=== PATIENT | female | born 1940 | race Caucasian/White ===

== ENCOUNTER → 2016-11-21 | Outpatient (CLI) | payer MEDICARE, OTHER ==
[~2016-11-21] MED LIST: B-121000 MCG PO; CARDIZEM CD 24240 MG PO; CIPRO 250MG TA250 MG PO; CLEOCIN HCL300 MG PO; COLACE 100100 MG/CAP PO; CORDARONE200 MG/TAB PO; FLAX OIL1000 MG PO; HEPARIN LOCK FLU5 M1 IV; LASIX 20MG TABL20 MG PO; LEVAQUIN 750MG750 M1 PO; MIRALAX PA17 GM/Dose PO; MULTI VITAMINS1 TAB PO; NATURAL MAGNES200 MG PO; NORCO 325 MG-51 TAB PO; NYAMYC100000 U/G TP; NYSTATIN POWDER30 GM TOP; ROCEPHIN 2GM VIAL21 IV; SENSIPAR30 MG PO; TYLENOL 325MG325 MG PO; VITAMINC1000TA PO; XOPENEX 0.0.63 MG/3 IH; ZEBETA 5MG5 MG PO; ZYLOPRIM 300MG300 MG PO
== END ==
LOC: MC.RAD 10:42
DX: Z12.31 Encounter for screening mammogram for malignant neoplasm of breast (principal)

== ENCOUNTER 2016-12-08 19:20 | Inpatient (IN) | payer MEDICARE, OTHER ==
[~2016-12-08] VITALS: Ht 162.6 cm; Wt 79.5 kg
[~2016-12-08 19:20] MED LIST changes: -B-121000 MCG PO; -CARDIZEM CD 24240 MG PO; -CLEOCIN HCL300 MG PO; -COLACE 100100 MG/CAP PO; -CORDARONE200 MG/TAB PO; -FLAX OIL1000 MG PO; -HEPARIN LOCK FLU5 M1 IV; -LASIX 20MG TABL20 MG PO; -LEVAQUIN 750MG750 M1 PO; -MIRALAX PA17 GM/Dose PO; -MULTI VITAMINS1 TAB PO; -NATURAL MAGNES200 MG PO; -NORCO 325 MG-51 TAB PO; -NYAMYC100000 U/G TP; -NYSTATIN POWDER30 GM TOP; -ROCEPHIN 2GM VIAL21 IV; -SENSIPAR30 MG PO; -TYLENOL 325MG325 MG PO; -VITAMINC1000TA PO; -XOPENEX 0.0.63 MG/3 IH; -ZEBETA 5MG5 MG PO; -ZYLOPRIM 300MG300 MG PO
[2016-12-08 20:00] LABS: HEMATOCRIT 40.2 % (37.0-47.0); HEMOGLOBIN 13.6 g/dl (12.5-16.0); MEAN CELL VOLUME 88 fl (80.0-100.0); MEAN CORPUSCULAR HEMOGLOBIN 30 pg (27.0-31.0); MEAN CORPUSCULAR HGB CONC 34 g/dl (33.0-37.0); MEAN PLATELET VOLUME 13.7 fl (7.4-10.4); PLATELET COUNT 158 K/mm3 (130-400); RED BLOOD COUNT 4.59 M/mm3 (4.10-5.30); REDCELL DISTRIBUTION WIDTH-CV 13.8 % (11.5-14.5)
[2016-12-08 20:07] LABS: ADD PATHOLOGY DIFF REVIEW NO; WHITE BLOOD COUNT 29.5 K/mm3 (4.8-10.8)
[2016-12-08 20:12] LABS: ANION GAP 10 mmol/L (7-16); BLOOD UREA NITROGEN 30 mg/dL (7-17); CALCIUM 11.4 mg/dL (8.4-10.2); CARBON DIOXIDE 23 mmol/L (22-30); CHLORIDE 96 mmol/L (98-107); CREATININE, serum 0.67 mg/dL (0.52-1.25); GLUCOSE 169 mg/dL (74-106); POTASSIUM 4.3 mmol/L (3.4-5.0); SODIUM 128 mmol/L (137-145)
[2016-12-08 20:24] LABS: B-TYPE NATRIURETIC PEPTIDE 1740 pg/mL (0-450)
[2016-12-08 20:25] LABS: BAND 34 % (0-10); METAMYELOCYTE 3 % (0-0); MYELOCYTE 1 % (0-0); NEUTROPHILS 37 % (42.0-75.2); PLATELET ESTIMATE NORMAL (NORMAL); TOTAL CELLS COUNTED 100
[2016-12-08 20:26] LABS: TROPONIN-I < 0.012 ng/mL (0.000-0.034)
[2016-12-08] MEDS ORDERED: MULTI VITAMINS1 TAB PO (21:21)
[2016-12-08] MEDS ORDERED: VITAMINC1000TA PO (21:21)
[2016-12-08 22:16] VITALS: BP 117/63; PULSE 127; TEMP 97.8
[2016-12-09] VITALS (572 sets, daily range): BP systolic 99–136; BP diastolic 51–85; PULSE 80–144; TEMP 96.8–98.7; O2SAT 84–96
[2016-12-09 03:51] LABS: HEMATOCRIT 37.6 % (37.0-47.0); HEMOGLOBIN 12.3 g/dl (12.5-16.0); MEAN CELL VOLUME 90 fl (80.0-100.0); MEAN CORPUSCULAR HEMOGLOBIN 30 pg (27.0-31.0); MEAN CORPUSCULAR HGB CONC 33 g/dl (33.0-37.0); MEAN PLATELET VOLUME 13.4 fl (7.4-10.4); PLATELET COUNT 152 K/mm3 (130-400); RED BLOOD COUNT 4.16 M/mm3 (4.10-5.30); REDCELL DISTRIBUTION WIDTH-CV 13.9 % (11.5-14.5)
[2016-12-09 04:00] LABS: ADD PATHOLOGY DIFF REVIEW NO; WHITE BLOOD COUNT 31.7 K/mm3 (4.8-10.8)
[2016-12-09 04:07] LABS: ANION GAP 9 mmol/L (7-16); BLOOD UREA NITROGEN 27 mg/dL (7-17); CALCIUM 10.4 mg/dL (8.4-10.2); CARBON DIOXIDE 21 mmol/L (22-30); CHLORIDE 100 mmol/L (98-107); CREATININE, serum 0.63 mg/dL (0.52-1.25); GLUCOSE 193 mg/dL (74-106); POTASSIUM 3.7 mmol/L (3.4-5.0); SODIUM 130 mmol/L (137-145)
[2016-12-09 04:58] LABS: TROPONIN-I < 0.012 ng/mL (0.000-0.034)
[2016-12-09 06:13] LABS: BAND 59 % (0-10); BASOPHIL 1 % (0-2); METAMYELOCYTE 3 % (0-0); NEUTROPHILS 14 % (42.0-75.2); TOTAL CELLS COUNTED 100
[2016-12-09 06:14] LABS: PLATELET ESTIMATE NORMAL (NORMAL)
[2016-12-09 13:25] LABS: INFLUENZA B NEGATIVE
[2016-12-10] VITALS (1068 sets, daily range): BP systolic 132–153; BP diastolic 69–99; PULSE 87–106; TEMP 97.7–98.3; O2SAT 79–100
[2016-12-10 06:07] LABS: BASO # 0.1 (0.0-0.2); BASO % 0.2 % (0.0-2.0); EOS # 0.1 (0.0-0.7); EOS % 0.3 % (0-4.0); GRAN # 32.3 (1.4-6.5); GRAN % 75.6 % (42.2-75.2); HEMATOCRIT 38.5 % (37.0-47.0); HEMOGLOBIN 12.5 g/dl (12.5-16.0); LYMPH # 7.8 (1.2-3.4); LYMPH % 18.3 % (20.0-51.0); MEAN CELL VOLUME 90 fl (80.0-100.0); MEAN CORPUSCULAR HEMOGLOBIN 29 pg (27.0-31.0); MEAN CORPUSCULAR HGB CONC 33 g/dl (33.0-37.0); MEAN PLATELET VOLUME 13.6 fl (7.4-10.4); MONO # 1.1 (0.1-0.6); MONO % 2.6 % (1.7-9.3); PLATELET COUNT 222 K/mm3 (130-400); RED BLOOD COUNT 4.28 M/mm3 (4.10-5.30); REDCELL DISTRIBUTION WIDTH-CV 14.5 % (11.5-14.5)
[2016-12-10 06:15] LABS: CALCIUM 10.5 mg/dL (8.4-10.2); CREATININE, serum 0.6 mg/dL (0.52-1.25); POTASSIUM 3.9 mmol/L (3.4-5.0)
[2016-12-10 06:20] LABS: WHITE BLOOD COUNT 42.7 K/mm3 (4.8-10.8)
[2016-12-10 06:59] LABS: ADD PATHOLOGY DIFF REVIEW NO
[2016-12-10 07:29] LABS: BAND 32 % (0-10); BASOPHIL 1 % (0-2); EOSINOPHIL 0 % (0-4); NEUTROPHILS 41 % (42.0-75.2); TOTAL CELLS COUNTED 101
[2016-12-10 08:15] LABS: PH 6 (5-8); SQUAMOUS EPITHELIAL 0-2 /hpf; URINE APPEARANCE Clear; URINE BACTERIA None Seen /hpf; URINE BILIRUBIN Negative (NEGATIVE); URINE BLOOD Negative (NEGATIVE); URINE COLOR Yellow; URINE GLUCOSE Negative (NEGATIVE); URINE KETONE Negative (NEGATIVE); URINE RBC None Seen /hpf; URINE UROBILINOGEN Negative (NEGATIVE); URINE WBC 0-2 /hpf
[2016-12-11] VITALS (7 sets, daily range): BP systolic 108–147; BP diastolic 53–99; PULSE 94–107; TEMP 98–100
[2016-12-11 10:11] LABS: BASO # 0.2 (0.0-0.2); BASO % 0.4 % (0.0-2.0); EOS # 0.1 (0.0-0.7); EOS % 0.2 % (0-4.0); GRAN # 30.9 (1.4-6.5); GRAN % 70.2 % (42.2-75.2); HEMATOCRIT 37.3 % (37.0-47.0); HEMOGLOBIN 12.2 g/dl (12.5-16.0); LYMPH # 9.8 (1.2-3.4); LYMPH % 22.3 % (20.0-51.0); MEAN CELL VOLUME 90 fl (80.0-100.0); MEAN CORPUSCULAR HEMOGLOBIN 29 pg (27.0-31.0); MEAN CORPUSCULAR HGB CONC 33 g/dl (33.0-37.0); MEAN PLATELET VOLUME 12.5 fl (7.4-10.4); MONO # 1.5 (0.1-0.6); MONO % 3.5 % (1.7-9.3); PLATELET COUNT 288 K/mm3 (130-400); RED BLOOD COUNT 4.15 M/mm3 (4.10-5.30); REDCELL DISTRIBUTION WIDTH-CV 14.6 % (11.5-14.5)
[2016-12-11 10:12] LABS: CALCIUM 10.2 mg/dL (8.4-10.2); CREATININE, serum 0.57 mg/dL (0.52-1.25); POTASSIUM 4.3 mmol/L (3.4-5.0)
[2016-12-11 10:15] LABS: WHITE BLOOD COUNT 43.9 K/mm3 (4.8-10.8)
[2016-12-11 10:56] LABS: ADD PATHOLOGY DIFF REVIEW NO
[2016-12-11 11:09] LABS: BAND 33 % (0-10); NEUTROPHILS 44 % (42.0-75.2); TOTAL CELLS COUNTED 100
[2016-12-11 16:05] LABS: GLUCOSE,PLEURAL FLUID 82 mg/dL
[2016-12-11 16:08] LABS: THORA FLUID RIGHT SIDE
[2016-12-11 16:09] LABS: THORACENTESIS POLYMORPHONUCLEA 80.3 %
[2016-12-12] VITALS: BP 117/70; PULSE 92; TEMP 99.8
[2016-12-12 04:00] VITALS: BP 111/60; PULSE 92; TEMP 99.4
[2016-12-12 05:57] LABS: HEMATOCRIT 37.7 % (37.0-47.0); HEMOGLOBIN 12.2 g/dl (12.5-16.0); MEAN CELL VOLUME 90 fl (80.0-100.0); MEAN CORPUSCULAR HEMOGLOBIN 29 pg (27.0-31.0); MEAN CORPUSCULAR HGB CONC 32 g/dl (33.0-37.0); MEAN PLATELET VOLUME 12.4 fl (7.4-10.4); PLATELET COUNT 309 K/mm3 (130-400); RED BLOOD COUNT 4.17 M/mm3 (4.10-5.30); REDCELL DISTRIBUTION WIDTH-CV 14.6 % (11.5-14.5)
[2016-12-12 06:00] LABS: ADD PATHOLOGY DIFF REVIEW NO; WHITE BLOOD COUNT 36.6 K/mm3 (4.8-10.8)
[2016-12-12 06:07] LABS: CALCIUM 10.1 mg/dL (8.4-10.2); CREATININE, serum 0.62 mg/dL (0.52-1.25); POTASSIUM 4.4 mmol/L (3.4-5.0)
[2016-12-12 06:17] LABS: BAND 34 % (0-10); NEUTROPHILS 23 % (42.0-75.2); PLATELET ESTIMATE NORMAL (NORMAL); TOTAL CELLS COUNTED 100
[2016-12-12 08:00] VITALS: BP 126/71; PULSE 87; TEMP 97.7
[2016-12-12 13:03] VITALS: BP 106/90; PULSE 91; TEMP 98
[2016-12-12 16:00] VITALS: BP 137/69; PULSE 93; TEMP 98.7
[2016-12-12 20:00] VITALS: BP 113/62; PULSE 88; TEMP 97.8
[2016-12-13] VITALS: BP 115/58; PULSE 86; TEMP 98.6
[2016-12-13 04:00] VITALS: BP 129/66; PULSE 82; TEMP 98.4
[2016-12-13 07:33] LABS: HEMATOCRIT 39.5 % (37.0-47.0); HEMOGLOBIN 12.5 g/dl (12.5-16.0); MEAN CELL VOLUME 93 fl (80.0-100.0); MEAN CORPUSCULAR HEMOGLOBIN 29 pg (27.0-31.0); MEAN CORPUSCULAR HGB CONC 32 g/dl (33.0-37.0); MEAN PLATELET VOLUME 12.2 fl (7.4-10.4); RED BLOOD COUNT 4.27 M/mm3 (4.10-5.30); REDCELL DISTRIBUTION WIDTH-CV 14.9 % (11.5-14.5)
[2016-12-13 07:38] LABS: CALCIUM 9.7 mg/dL (8.4-10.2); CREATININE, serum 0.53 mg/dL (0.52-1.25); POTASSIUM 4.7 mmol/L (3.4-5.0)
[2016-12-13 08:00] VITALS: BP 129/73; PULSE 87; TEMP 97.1
[2016-12-13 08:01] LABS: WHITE BLOOD COUNT 38.2 K/mm3 (4.8-10.8)
[2016-12-13 08:04] LABS: PLATELET COUNT 299 K/mm3 (130-400)
[2016-12-13 08:05] LABS: ADD PATHOLOGY DIFF REVIEW NO
[2016-12-13 11:37] LABS: BAND 29 % (0-10); NEUTROPHILS 29 % (42.0-75.2)
[2016-12-13 11:38] LABS: METAMYELOCYTE 1 % (0-0); PLATELET ESTIMATE NORMAL (NORMAL); TOTAL CELLS COUNTED 300
[2016-12-13 12:00] VITALS: BP 107/89; PULSE 90; TEMP 97.1
[2016-12-13 16:00] VITALS: BP 107/60; PULSE 82; TEMP 97.4
[2016-12-13 20:00] VITALS: BP 129/79; PULSE 86; TEMP 97.2
[2016-12-14] VITALS (7 sets, daily range): BP systolic 101–130; BP diastolic 58–81; PULSE 80–92; TEMP 97–98.7
[2016-12-15 04:00] VITALS: BP 116/63; PULSE 88; TEMP 97.8
[2016-12-15 06:03] LABS: HEMATOCRIT 38.4 % (37.0-47.0); HEMOGLOBIN 12.4 g/dl (12.5-16.0); MEAN CELL VOLUME 92 fl (80.0-100.0); MEAN CORPUSCULAR HEMOGLOBIN 30 pg (27.0-31.0); MEAN CORPUSCULAR HGB CONC 32 g/dl (33.0-37.0); MEAN PLATELET VOLUME 11.5 fl (7.4-10.4); PLATELET COUNT 287 K/mm3 (130-400); RED BLOOD COUNT 4.19 M/mm3 (4.10-5.30); REDCELL DISTRIBUTION WIDTH-CV 14.6 % (11.5-14.5)
[2016-12-15 06:17] LABS: CALCIUM 9.3 mg/dL (8.4-10.2); CREATININE, serum 0.5 mg/dL (0.52-1.25); POTASSIUM 4.9 mmol/L (3.4-5.0)
[2016-12-15 06:58] LABS: ADD PATHOLOGY DIFF REVIEW NO; WHITE BLOOD COUNT 40.7 K/mm3 (4.8-10.8)
[2016-12-15 08:00] VITALS: BP 118/66; PULSE 88; TEMP 98
[2016-12-15 08:07] LABS: BAND 22 % (0-10); EOSINOPHIL 1 % (0-4); MYELOCYTE 1 % (0-0); NEUTROPHILS 40 % (42.0-75.2)
[2016-12-15 08:09] LABS: PLATELET ESTIMATE NORMAL (NORMAL); TOTAL CELLS COUNTED 400
[2016-12-15 12:00] VITALS: BP 116/57; PULSE 80; TEMP 98.4
[2016-12-15 18:17] VITALS: BP 112/54; PULSE 80; TEMP 96
[2016-12-15 21:42] VITALS: BP 120/58; PULSE 80; TEMP 96
[2016-12-16 01:38] VITALS: BP 118/53; PULSE 82; TEMP 97
[2016-12-16 06:21] VITALS: BP 117/58; PULSE 80; TEMP 97
[2016-12-16 09:11] VITALS: BP 140/61; PULSE 89; TEMP 97.1
[2016-12-16 09:32] LABS: CALCIUM 9.4 mg/dL (8.4-10.2); CREATININE, serum 0.45 mg/dL (0.52-1.25); POTASSIUM 4.3 mmol/L (3.4-5.0)
[2016-12-16 09:51] LABS: HEMATOCRIT 40.6 % (37.0-47.0); MEAN CELL VOLUME 91 fl (80.0-100.0); MEAN CORPUSCULAR HEMOGLOBIN 29 pg (27.0-31.0); MEAN CORPUSCULAR HGB CONC 32 g/dl (33.0-37.0); MEAN PLATELET VOLUME 12.3 fl (7.4-10.4); RED BLOOD COUNT 4.44 M/mm3 (4.10-5.30); REDCELL DISTRIBUTION WIDTH-CV 14.7 % (11.5-14.5)
[2016-12-16 10:49] LABS: PLATELET COUNT 330 K/mm3 (130-400); WHITE BLOOD COUNT 37.4 K/mm3 (4.8-10.8)
[2016-12-16 13:46] VITALS: BP 121/50; PULSE 76; TEMP 96.9
[2016-12-16 17:11] VITALS: BP 135/54; PULSE 79; TEMP 98.6
[2016-12-16 21:38] VITALS: BP 118/55; PULSE 86; TEMP 98.4
[2016-12-17 02:26] VITALS: BP 128/49; PULSE 88; TEMP 98.5
[2016-12-17 06:19] VITALS: BP 127/49; PULSE 79; TEMP 98.3
[2016-12-17 09:14] VITALS: BP 128/71; PULSE 85; TEMP 96.5
[2016-12-17 11:41] LABS: MEAN CELL VOLUME 92 fl (80.0-100.0); MEAN CORPUSCULAR HGB CONC 32 g/dl (33.0-37.0); MEAN PLATELET VOLUME 12.4 fl (7.4-10.4); PLATELET COUNT 281 K/mm3 (130-400); RED BLOOD COUNT 3.95 M/mm3 (4.10-5.30); REDCELL DISTRIBUTION WIDTH-CV 14.7 % (11.5-14.5)
[2016-12-17 11:44] LABS: HEMATOCRIT 36.2 % (37.0-47.0); HEMOGLOBIN 11.5 g/dl (12.5-16.0); MEAN CORPUSCULAR HEMOGLOBIN 29 pg (27.0-31.0)
[2016-12-17 11:45] LABS: ADD PATHOLOGY DIFF REVIEW NO
[2016-12-17 11:59] LABS: BAND 5 % (0-10); EOSINOPHIL 2 % (0-4); NEUTROPHILS 39 % (42.0-75.2); PLATELET ESTIMATE NORMAL (NORMAL); TOTAL CELLS COUNTED 100
[2016-12-17 14:12] VITALS: BP 118/56; PULSE 79; TEMP 97.6
[2016-12-17 18:19] VITALS: BP 133/48; PULSE 88; TEMP 98
[2016-12-17 22:12] VITALS: BP 125/51; PULSE 81; TEMP 98.1
[2016-12-18 02:09] VITALS: BP 131/59; PULSE 80; TEMP 98.6
[2016-12-18 06:10] VITALS: BP 122/57; PULSE 85; TEMP 98.1
[2016-12-18 09:18] VITALS: BP 136/62; PULSE 77; TEMP 96.6
[2016-12-18 10:19] LABS: MEAN CELL VOLUME 92 fl (80.0-100.0); MEAN CORPUSCULAR HGB CONC 31 g/dl (33.0-37.0); PLATELET COUNT 313 K/mm3 (130-400); RED BLOOD COUNT 3.97 M/mm3 (4.10-5.30); REDCELL DISTRIBUTION WIDTH-CV 14.8 % (11.5-14.5)
[2016-12-18 10:23] LABS: ADD PATHOLOGY DIFF REVIEW NO; HEMATOCRIT 36.6 % (37.0-47.0); HEMOGLOBIN 11.5 g/dl (12.5-16.0); MEAN CORPUSCULAR HEMOGLOBIN 29 pg (27.0-31.0); WHITE BLOOD COUNT 28.5 K/mm3 (4.8-10.8)
[2016-12-18 10:29] LABS: BAND 6 % (0-10); EOSINOPHIL 2 % (0-4); MYELOCYTE 1 % (0-0); NEUTROPHILS 33 % (42.0-75.2); PLATELET ESTIMATE NORMAL (NORMAL); TOTAL CELLS COUNTED 100
[2016-12-18 14:19] VITALS: BP 138/63; PULSE 83; TEMP 97.7
[2016-12-18 18:17] VITALS: BP 134/50; PULSE 82; TEMP 97.1
[2016-12-18 22:09] VITALS: BP 141/60; PULSE 89; TEMP 98.6
[2016-12-19] VITALS (7 sets, daily range): BP systolic 130–152; BP diastolic 53–81; PULSE 76–102; TEMP 96.2–98.5
[2016-12-19 16:56] LABS: ARTERIAL BLD GAS O2 SATURATION 94.8 % (92-100); ARTERIAL BLD GAS TCO2 CT 26.5; ARTERIAL BLOOD GAS BASE EXCESS 2.2 (-2-2); ARTERIAL BLOOD GAS HCO3 25.5 meq/L (22-26); ARTERIAL BLOOD GAS PHT 7.48 C (7.35-7.45); ARTERIAL BLOOD GAS PO2 68.5 mmHg (80-100); ARTERIAL BLOOD GAS PO2T 68.5 (80-100); ARTERIAL BLOOD GAS pH 7.48 (7.35-7.45); OXYHEMOGLOBIN 94.1 %
[2016-12-19 16:57] LABS: ATS? YES
[2016-12-19 17:27] LABS: HEMATOCRIT 38.5 % (37.0-47.0); HEMOGLOBIN 12.2 g/dl (12.5-16.0); MEAN CELL VOLUME 91 fl (80.0-100.0); MEAN CORPUSCULAR HEMOGLOBIN 29 pg (27.0-31.0); MEAN CORPUSCULAR HGB CONC 32 g/dl (33.0-37.0); PLATELET COUNT 363 K/mm3 (130-400); RED BLOOD COUNT 4.22 M/mm3 (4.10-5.30)
[2016-12-19 17:31] LABS: ADD PATHOLOGY DIFF REVIEW NO; WHITE BLOOD COUNT 27.3 K/mm3 (4.8-10.8)
[2016-12-19 17:40] LABS: ALBUMIN 2.5 gm/dL (3.5-5.0); BILIRUBIN,TOTAL 0.5 mg/dL (0.0-1.0); CALCIUM 9.8 mg/dL (8.4-10.2); CREATININE, serum 0.46 mg/dL (0.52-1.25); TOTAL PROTEIN 5.3 gm/dL (6.4-8.2)
[2016-12-19 17:42] LABS: BAND 2 % (0-10); BASOPHIL 1 % (0-2); EOSINOPHIL 2 % (0-4); METAMYELOCYTE 1 % (0-0); NEUTROPHILS 48 % (42.0-75.2); TOTAL CELLS COUNTED 102
[2016-12-19 17:47] LABS: HYPOCHROMIA 1+; POIKILOCYTOSIS 1+
[2016-12-20 00:37] LABS: PH 7 (5-8); SQUAMOUS EPITHELIAL 0-2 /hpf; URINE APPEARANCE Hazy; URINE BACTERIA Rare /hpf; URINE BILIRUBIN Negative (NEGATIVE); URINE BLOOD Negative (NEGATIVE); URINE COLOR Yellow; URINE GLUCOSE Negative (NEGATIVE); URINE KETONE Negative (NEGATIVE); URINE RBC None Seen /hpf; URINE UROBILINOGEN Negative (NEGATIVE); URINE WBC 0-2 /hpf
[2016-12-20 05:47] VITALS: BP 152/67; PULSE 77; TEMP 98.5
[2016-12-20 08:22] LABS: MEAN CELL VOLUME 92 fl (80.0-100.0); MEAN CORPUSCULAR HGB CONC 31 g/dl (33.0-37.0); MEAN PLATELET VOLUME 12.6 fl (7.4-10.4); PLATELET COUNT 323 K/mm3 (130-400); RED BLOOD COUNT 3.87 M/mm3 (4.10-5.30); REDCELL DISTRIBUTION WIDTH-CV 15.1 % (11.5-14.5)
[2016-12-20 08:43] LABS: ADD PATHOLOGY DIFF REVIEW NO; HEMATOCRIT 35.6 % (37.0-47.0); HEMOGLOBIN 11.1 g/dl (12.5-16.0); MEAN CORPUSCULAR HEMOGLOBIN 29 pg (27.0-31.0); WHITE BLOOD COUNT 23.8 K/mm3 (4.8-10.8)
[2016-12-20 08:58] LABS: C-REACTIVE PROTEIN 1.3 mg/dL (0.0-0.9); CALCIUM 9.5 mg/dL (8.4-10.2); CREATININE, serum 0.48 mg/dL (0.52-1.25); PHOSPHOROUS 2.9 mg/dL (2.5-4.5); POTASSIUM 3.7 mmol/L (3.4-5.0)
[2016-12-20 09:38] LABS: BAND 9 % (0-10); EOSINOPHIL 3 % (0-4); METAMYELOCYTE 3 % (0-0); NEUTROPHILS 45 % (42.0-75.2)
[2016-12-20 09:45] LABS: PLATELET ESTIMATE NORMAL (NORMAL); TOTAL CELLS COUNTED 200
[2016-12-20 09:51] VITALS: BP 109/90; PULSE 83; TEMP 97.5
[2016-12-20 13:39] VITALS: BP 121/54; PULSE 86; TEMP 97.8
[2016-12-20 17:42] VITALS: BP 144/58; PULSE 82; TEMP 98.4
[2016-12-20 21:12] VITALS: BP 123/46; PULSE 82; TEMP 97.9
[2016-12-21] VITALS (10 sets, daily range): BP systolic 124–147; BP diastolic 50–71; PULSE 75–92; TEMP 97.8–98.6
[2016-12-21 07:32] LABS: ADJUSTED CALCIUM 11.1 mg/dL (8.4-10.2); ALANINE AMINOTRANSFERASE 53 U/L (9-52); ALBUMIN 2.2 gm/dL (3.5-5.0); ALKALINE PHOSPHATASE 79 U/L (50-136); ANION GAP 4 mmol/L (7-16); BILIRUBIN,TOTAL 0.5 mg/dL (0.0-1.0); BLOOD UREA NITROGEN 10 mg/dL (7-17); CALCIUM 9.7 mg/dL (8.4-10.2); CARBON DIOXIDE 29 mmol/L (22-30); CHLORIDE 106 mmol/L (98-107); CREATININE, serum 0.48 mg/dL (0.52-1.25); GLUCOSE 87 mg/dL (74-106); MAGNESIUM 2.4 mg/dL (1.6-2.3); PHOSPHOROUS 2.9 mg/dL (2.5-4.5); POTASSIUM 3.7 mmol/L (3.4-5.0); SODIUM 138 mmol/L (137-145); TOTAL PROTEIN 4.9 gm/dL (6.4-8.2)
[2016-12-21 23:00] LABS: TROPONIN-I < 0.012 ng/mL (0.000-0.034)
[2016-12-22 02:02] VITALS: BP 118/56; PULSE 103; TEMP 98.3
[2016-12-22 05:09] VITALS: BP 146/58; PULSE 84; TEMP 97.8
[2016-12-22 07:54] LABS: MEAN CELL VOLUME 93 fl (80.0-100.0); MEAN CORPUSCULAR HGB CONC 31 g/dl (33.0-37.0); MEAN PLATELET VOLUME 12.5 fl (7.4-10.4); PLATELET COUNT 345 K/mm3 (130-400); RED BLOOD COUNT 3.74 M/mm3 (4.10-5.30); REDCELL DISTRIBUTION WIDTH-CV 15.4 % (11.5-14.5)
[2016-12-22 08:03] LABS: ADD PATHOLOGY DIFF REVIEW NO; HEMATOCRIT 34.9 % (37.0-47.0); HEMOGLOBIN 10.8 g/dl (12.5-16.0); MEAN CORPUSCULAR HEMOGLOBIN 29 pg (27.0-31.0)
[2016-12-22 10:17] VITALS: BP 133/74; PULSE 86; TEMP 97.7
[2016-12-22 13:08] LABS: BAND 3 % (0-10); BASOPHIL 1 % (0-2); EOSINOPHIL 5 % (0-4); METAMYELOCYTE 1 % (0-0); NEUTROPHILS 26 % (42.0-75.2)
[2016-12-22 13:10] LABS: TOTAL CELLS COUNTED 200
[2016-12-22 13:11] LABS: ANISOCYTOSIS 1+; PLATELET ESTIMATE NORMAL (NORMAL)
[2016-12-22 13:12] VITALS: BP 138/62; PULSE 92; TEMP 97.8
[2016-12-22 17:39] VITALS: BP 142/75; PULSE 77; TEMP 97.8
[2016-12-22 22:00] VITALS: BP 138/55; PULSE 84; TEMP 97.8
[2016-12-23 01:57] VITALS: BP 128/50; PULSE 82; TEMP 98.1
[2016-12-23 06:29] VITALS: BP 147/57; PULSE 78; TEMP 98.3
[2016-12-23 07:41] LABS: ALBUMIN 2.3 gm/dL (3.5-5.0); BILIRUBIN,TOTAL 0.5 mg/dL (0.0-1.0); CALCIUM 9.6 mg/dL (8.4-10.2); CREATININE, serum 0.45 mg/dL (0.52-1.25); POTASSIUM 3.8 mmol/L (3.4-5.0); TOTAL PROTEIN 5.1 gm/dL (6.4-8.2)
[2016-12-23 09:31] VITALS: BP 125/52; PULSE 83; TEMP 97.4
[2016-12-23 09:39] LABS: MEAN CELL VOLUME 94 fl (80.0-100.0); MEAN CORPUSCULAR HGB CONC 31 g/dl (33.0-37.0); MEAN PLATELET VOLUME 12.7 fl (7.4-10.4); PLATELET COUNT 316 K/mm3 (130-400); RED BLOOD COUNT 3.53 M/mm3 (4.10-5.30); REDCELL DISTRIBUTION WIDTH-CV 15.3 % (11.5-14.5)
[2016-12-23 09:40] LABS: HEMATOCRIT 33.2 % (37.0-47.0); HEMOGLOBIN 10.3 g/dl (12.5-16.0); MEAN CORPUSCULAR HEMOGLOBIN 29 pg (27.0-31.0); WHITE BLOOD COUNT 22.9 K/mm3 (4.8-10.8)
[2016-12-23 13:20] VITALS: BP 139/62; PULSE 83; TEMP 98.1
[2016-12-23] MEDS ORDERED: HEPARIN LOCK FLU5 M1 IV ×2 (13:35)
[2016-12-23] MEDS ORDERED: XOPENEX 0.0.63 MG/3 IH ×2 (13:35)
[2016-12-23] MEDS ORDERED: CARDIZEM CD 24240 MG PO (13:36)
[2016-12-23] MEDS ORDERED: TYLENOL 325MG325 MG PO (13:36)
[2016-12-23] MEDS ORDERED: COLACE 100100 MG/CAP PO (13:37)
[2016-12-23] MEDS ORDERED: MIRALAX PA17 GM/Dose PO (13:37)
[2016-12-23] MEDS ORDERED: SENSIPAR30 MG PO (13:38)
[2016-12-23] MEDS ORDERED: NYSTATIN POWDER30 GM TOP (13:38)
[2016-12-23] MEDS ORDERED: ROCEPHIN 2GM VIAL21 IV (13:41)
[2016-12-23] MEDS ORDERED: CLEOCIN HCL300 MG PO (13:42)
[2016-12-23 14:47] VITALS: BP 139/62; PULSE 83; TEMP 98.1
[2016-12-28 15:10] LABS: PTH-RELATED PEPTIDE 0.3 pmol/L (<2.0)
== END 2016-12-23 15:42 | DRG 871 ==
LOC: COL.ER 19:20 → MEDICAL 20:55 → IMCU 20:55 → ICU 12-10 15:30 → SURG 12-15 15:00
PROVIDERS: Emergency Medicine; Family Medicine; Internal Medicine; Internal Medicine Pulmonary Disease; Nurse Practitioner Family; Surgery
PROC: 0W9B3ZX Drainage of Left Pleural Cavity, Percutaneous Approach, Diagnostic (ICD-10-PCS; 2016-12-11)
PROC: 0B948ZX Drainage of Right Upper Lobe Bronchus, Via Natural or Artificial Opening Endoscopic, Diagnostic (ICD-10-PCS; 2016-12-11 10:00)
PROC: 0W9900Z Drainage of Right Pleural Cavity with Drainage Device, Open Approach (ICD-10-PCS; principal; 2016-12-12)
DX: A40.0 Sepsis due to streptococcus, group A (principal); J10.08 Influenza due to other identified influenza virus with other specified pneumonia; J86.9 Pyothorax without fistula; J15.4 Pneumonia due to other streptococci; J96.01 Acute respiratory failure with hypoxia; Z66 Do not resuscitate; J91.8 Pleural effusion in other conditions classified elsewhere; E87.1 Hypo-osmolality and hyponatremia; F05 Delirium due to known physiological condition; I47.1 Supraventricular tachycardia; E86.0 Dehydration; R32 Unspecified urinary incontinence; J98.4 Other disorders of lung; E21.0 Primary hyperparathyroidism; B95.0 Streptococcus, group A, as the cause of diseases classified elsewhere
CPT/HCPCS: 90791-AI; 99223-AI; 99232-AI; 99233-AI; 99239; A4315; A7048; A9284; A9500; C1751; J0456; J0696; J1170; J1644; J1650; J1885; J2270; J2405; J2430; J2704; J2997; J3480; J7030; J7050; J7614; Q9967

== ENCOUNTER → 2016-12-29 | Outpatient (CLI) | payer OTHER ==
[~2016-12-29] MED LIST changes: +B-121000 MCG PO; +CARDIZEM CD 24240 MG PO; +CLEOCIN HCL300 MG PO; +COLACE 100100 MG/CAP PO; +CORDARONE200 MG/TAB PO; +FLAX OIL1000 MG PO; +HEPARIN LOCK FLU5 M1 IV; +LASIX 20MG TABL20 MG PO; +LEVAQUIN 750MG750 M1 PO; +MIRALAX PA17 GM/Dose PO; +MULTI VITAMINS1 TAB PO; +NATURAL MAGNES200 MG PO; +NORCO 325 MG-51 TAB PO; +NYAMYC100000 U/G TP; +NYSTATIN POWDER30 GM TOP; +ROCEPHIN 2GM VIAL21 IV; +SENSIPAR30 MG PO; +TYLENOL 325MG325 MG PO; +VITAMINC1000TA PO; +XOPENEX 0.0.63 MG/3 IH; +ZEBETA 5MG5 MG PO; +ZYLOPRIM 300MG300 MG PO
== END ==
LOC: COL.RAD 08:46
DX: J18.8 Other pneumonia, unspecified organism (principal); J92.9 Pleural plaque without asbestos

== ENCOUNTER 2017-01-02 12:52 | Inpatient (IN) | payer MEDICARE, OTHER ==
[2017-01-02] VITALS (342 sets, daily range): BP systolic 127–140; BP diastolic 66; PULSE 94–104; TEMP 100.1–102; O2SAT 85–98
[~2017-01-02] VITALS: Ht 162.6 cm; Wt 87.7 kg
[~2017-01-02 12:52] MED LIST changes: -B-121000 MCG PO; -CORDARONE200 MG/TAB PO; -FLAX OIL1000 MG PO; -LASIX 20MG TABL20 MG PO; -LEVAQUIN 750MG750 M1 PO; -NATURAL MAGNES200 MG PO; -NORCO 325 MG-51 TAB PO; -NYAMYC100000 U/G TP; -ZEBETA 5MG5 MG PO; -ZYLOPRIM 300MG300 MG PO
[2017-01-02 13:44] LABS: BASO % 0.2 % (0.0-2.0); EOS % 0.2 % (0-4.0); GRAN % 56.2 % (42.2-75.2); LYMPH # 5.1 (1.2-3.4); LYMPH % 35.9 % (20.0-51.0); MEAN CELL VOLUME 92 fl (80.0-100.0); MEAN CORPUSCULAR HGB CONC 32 g/dl (33.0-37.0); MEAN PLATELET VOLUME 13.1 fl (7.4-10.4); MONO % 7.2 % (1.7-9.3); PLATELET COUNT 148 K/mm3 (130-400); REDCELL DISTRIBUTION WIDTH-CV 15.1 % (11.5-14.5); WHITE BLOOD COUNT 14.3 K/mm3 (4.8-10.8)
[2017-01-02 13:45] LABS: HEMATOCRIT 36.7 % (37.0-47.0); HEMOGLOBIN 11.6 g/dl (12.5-16.0); MEAN CORPUSCULAR HEMOGLOBIN 29 pg (27.0-31.0)
[2017-01-02] MEDS ORDERED: CARDIZEM CD 24240 MG PO (13:50)
[2017-01-02] MEDS ORDERED: NYAMYC100000 U/G TP (13:51)
[2017-01-02] MEDS ORDERED: MULTI VITAMINS1 TAB PO (13:52)
[2017-01-02] MEDS ORDERED: VITAMINC1000TA PO (13:52)
[2017-01-02] MEDS ORDERED: NATURAL MAGNES200 MG PO (13:54)
[2017-01-02] MEDS ORDERED: FLAX OIL1000 MG PO (13:55)
[2017-01-02] MEDS ORDERED: B-121000 MCG PO (13:55)
[2017-01-02] MEDS ORDERED: LEVAQUIN 750MG750 M1 PO (13:56)
[2017-01-02 14:08] LABS: ADJUSTED CALCIUM 10.1 mg/dL (8.4-10.2); ALANINE AMINOTRANSFERASE 27 U/L (9-52); ALBUMIN 3.1 gm/dL (3.5-5.0); ALKALINE PHOSPHATASE 78 U/L (50-136); ANION GAP 8 mmol/L (7-16); BILIRUBIN,TOTAL 0.5 mg/dL (0.0-1.0); BLOOD UREA NITROGEN 13 mg/dL (7-17); CALCIUM 9.4 mg/dL (8.4-10.2); CARBON DIOXIDE 24 mmol/L (22-30); CHLORIDE 101 mmol/L (98-107); CREATININE, serum 0.55 mg/dL (0.52-1.25); GLUCOSE 105 mg/dL (74-106); POTASSIUM 4.6 mmol/L (3.4-5.0); SODIUM 133 mmol/L (137-145); TOTAL PROTEIN 6.3 gm/dL (6.4-8.2)
[2017-01-02 14:19] LABS: B-TYPE NATRIURETIC PEPTIDE 483 pg/mL (0-450)
[2017-01-02 14:20] LABS: TROPONIN-I < 0.012 ng/mL (0.000-0.034)
[2017-01-03] VITALS (10 sets, daily range): BP systolic 132–153; BP diastolic 53–87; PULSE 82–106; TEMP 98.1–102.6; O2SAT 94–95
[2017-01-03 05:37] LABS: BASO % 0.2 % (0.0-2.0); GRAN # 3.9 (1.4-6.5); GRAN % 44.8 % (42.2-75.2); LYMPH # 4.1 (1.2-3.4); MEAN CELL VOLUME 92 fl (80.0-100.0); MEAN CORPUSCULAR HGB CONC 32 g/dl (33.0-37.0); MEAN PLATELET VOLUME 13.8 fl (7.4-10.4); MONO # 0.6 (0.1-0.6); MONO % 6.8 % (1.7-9.3); PLATELET COUNT 103 K/mm3 (130-400); RED BLOOD COUNT 3.48 M/mm3 (4.10-5.30); REDCELL DISTRIBUTION WIDTH-CV 15.2 % (11.5-14.5); WHITE BLOOD COUNT 8.6 K/mm3 (4.8-10.8)
[2017-01-03 05:39] LABS: CALCIUM 7.4 mg/dL (8.4-10.2); CREATININE, serum 0.42 mg/dL (0.52-1.25); POTASSIUM 3.4 mmol/L (3.4-5.0)
[2017-01-03 06:10] LABS: HEMATOCRIT 32.1 % (37.0-47.0); HEMOGLOBIN 10.1 g/dl (12.5-16.0); MEAN CORPUSCULAR HEMOGLOBIN 29 pg (27.0-31.0)
[2017-01-04] VITALS (11 sets, daily range): BP systolic 120–168; BP diastolic 50–78; PULSE 85–115; TEMP 98–101.5
[2017-01-04 07:11] LABS: ADD PATHOLOGY DIFF REVIEW NO
[2017-01-04 07:30] LABS: INR 1.7 (0.8-3.0); PROTHROMBIN TIME 19.3 SECONDS (9.7-12.8)
[2017-01-04 07:40] LABS: MEAN CELL VOLUME 91 fl (80.0-100.0); MEAN CORPUSCULAR HGB CONC 32 g/dl (33.0-37.0); MEAN PLATELET VOLUME 14.1 fl (7.4-10.4); PLATELET COUNT 114 K/mm3 (130-400); RED BLOOD COUNT 3.92 M/mm3 (4.10-5.30); REDCELL DISTRIBUTION WIDTH-CV 15.4 % (11.5-14.5); WHITE BLOOD COUNT 10.3 K/mm3 (4.8-10.8)
[2017-01-04 07:41] LABS: HEMATOCRIT 35.8 % (37.0-47.0); HEMOGLOBIN 11.3 g/dl (12.5-16.0); MEAN CORPUSCULAR HEMOGLOBIN 29 pg (27.0-31.0)
[2017-01-04 07:44] LABS: CALCIUM 8.6 mg/dL (8.4-10.2); CREATININE, serum 0.43 mg/dL (0.52-1.25); POTASSIUM 3.8 mmol/L (3.4-5.0)
[2017-01-04 08:50] LABS: BAND 20 % (0-10); MYELOCYTE 1 % (0-0); NEUTROPHILS 35 % (42.0-75.2); PLATELET ESTIMATE DECREASED (NORMAL); TOTAL CELLS COUNTED 100
[2017-01-04 17:16] LABS: PLEURAL FLUID - PMN 1.6 % (0-25)
[2017-01-04 17:25] LABS: GLUCOSE,PLEURAL FLUID 132 mg/dL
[2017-01-04 17:29] LABS: PLEURAL FLUID RIGHT SIDE; PLEURAL FLUID APPEARANCE CLEAR; PLEURAL FLUID COLOR COLORLESS
[2017-01-05] VITALS (9 sets, daily range): BP systolic 138–189; BP diastolic 65–88; PULSE 95–144; TEMP 97.6–100.9
[2017-01-05 08:09] LABS: POTASSIUM 3.3 mmol/L (3.4-5.0)
[2017-01-05 08:43] LABS: THYROID STIMULATING HORMONE 0.659 uIU/mL (0.465-4.680)
[2017-01-06] VITALS (7 sets, daily range): BP systolic 129–162; BP diastolic 54–80; PULSE 67–94; TEMP 97.8–99.9
[2017-01-06 07:51] LABS: MEAN CELL VOLUME 91 fl (80.0-100.0); MEAN CORPUSCULAR HGB CONC 32 g/dl (33.0-37.0); MEAN PLATELET VOLUME 13.9 fl (7.4-10.4); PLATELET COUNT 136 K/mm3 (130-400); RED BLOOD COUNT 3.79 M/mm3 (4.10-5.30); REDCELL DISTRIBUTION WIDTH-CV 15.6 % (11.5-14.5); WHITE BLOOD COUNT 14.1 K/mm3 (4.8-10.8)
[2017-01-06 07:54] LABS: CALCIUM 8.9 mg/dL (8.4-10.2); CREATININE, serum 0.4 mg/dL (0.52-1.25); POTASSIUM 3.4 mmol/L (3.4-5.0)
[2017-01-06 07:55] LABS: HEMATOCRIT 34.4 % (37.0-47.0); HEMOGLOBIN 10.9 g/dl (12.5-16.0); MEAN CORPUSCULAR HEMOGLOBIN 29 pg (27.0-31.0)
[2017-01-06 07:56] LABS: ADD PATHOLOGY DIFF REVIEW NO
[2017-01-06 08:45] LABS: BAND 19 % (0-10); METAMYELOCYTE 1 % (0-0); NEUTROPHILS 28 % (42.0-75.2); PLATELET ESTIMATE NORMAL (NORMAL); TOTAL CELLS COUNTED 100
[2017-01-07 03:55] VITALS: BP 150/60; PULSE 85; TEMP 98.4
[2017-01-07 06:25] LABS: MEAN CELL VOLUME 91 fl (80.0-100.0); MEAN CORPUSCULAR HGB CONC 32 g/dl (33.0-37.0); MEAN PLATELET VOLUME 13.8 fl (7.4-10.4); PLATELET COUNT 169 K/mm3 (130-400); RED BLOOD COUNT 3.72 M/mm3 (4.10-5.30); REDCELL DISTRIBUTION WIDTH-CV 15.8 % (11.5-14.5); WHITE BLOOD COUNT 15.4 K/mm3 (4.8-10.8)
[2017-01-07 06:28] LABS: ADD PATHOLOGY DIFF REVIEW NO; HEMATOCRIT 33.7 % (37.0-47.0); HEMOGLOBIN 10.7 g/dl (12.5-16.0); MEAN CORPUSCULAR HEMOGLOBIN 29 pg (27.0-31.0)
[2017-01-07 06:41] LABS: BAND 20 % (0-10); NEUTROPHILS 36 % (42.0-75.2); PLATELET ESTIMATE NORMAL (NORMAL); TOTAL CELLS COUNTED 100
[2017-01-07 06:50] LABS: CALCIUM 9.2 mg/dL (8.4-10.2); CREATININE, serum 0.41 mg/dL (0.52-1.25)
[2017-01-07 08:41] VITALS: BP 148/60; PULSE 91
[2017-01-07 11:48] VITALS: BP 168/71; PULSE 77; TEMP 98
[2017-01-07 15:22] VITALS: BP 138/82; PULSE 81; TEMP 98.3
[2017-01-07 19:37] VITALS: BP 162/73; PULSE 84; TEMP 98.3
[2017-01-07 22:59] VITALS: BP 157/69; PULSE 75; TEMP 97.4
[2017-01-08 03:02] VITALS: BP 147/60; PULSE 74; TEMP 97.2
[2017-01-08 07:36] VITALS: BP 147/63; PULSE 81; TEMP 97.8
[2017-01-08 07:56] LABS: MEAN CELL VOLUME 91 fl (80.0-100.0); MEAN CORPUSCULAR HGB CONC 31 g/dl (33.0-37.0); MEAN PLATELET VOLUME 13.4 fl (7.4-10.4); PLATELET COUNT 215 K/mm3 (130-400); RED BLOOD COUNT 3.91 M/mm3 (4.10-5.30); REDCELL DISTRIBUTION WIDTH-CV 15.9 % (11.5-14.5); WHITE BLOOD COUNT 18.3 K/mm3 (4.8-10.8)
[2017-01-08 08:03] LABS: ADD PATHOLOGY DIFF REVIEW NO; HEMATOCRIT 35.4 % (37.0-47.0); MEAN CORPUSCULAR HEMOGLOBIN 28 pg (27.0-31.0)
[2017-01-08 08:08] LABS: CALCIUM 9.2 mg/dL (8.4-10.2); CREATININE, serum 0.35 mg/dL (0.52-1.25); MAGNESIUM 2.1 mg/dL (1.6-2.3); POTASSIUM 3.5 mmol/L (3.4-5.0)
[2017-01-08 08:31] LABS: BAND 12 % (0-10); METAMYELOCYTE 1 % (0-0); NEUTROPHILS 28 % (42.0-75.2); PLATELET ESTIMATE NORMAL (NORMAL); TOTAL CELLS COUNTED 100
[2017-01-08 12:05] VITALS: BP 149/65; PULSE 76; TEMP 97.6
[2017-01-08 15:30] VITALS: BP 157/68; PULSE 82; TEMP 97.6
[2017-01-08 21:19] VITALS: BP 145/61; PULSE 81; TEMP 97.9
[2017-01-09 00:07] VITALS: BP 156/66; PULSE 79; TEMP 98.1
[2017-01-09 03:15] VITALS: BP 160/67; PULSE 83; TEMP 98.2
[2017-01-09 06:58] LABS: MEAN CELL VOLUME 90 fl (80.0-100.0); MEAN CORPUSCULAR HGB CONC 32 g/dl (33.0-37.0); PLATELET COUNT 261 K/mm3 (130-400); RED BLOOD COUNT 3.91 M/mm3 (4.10-5.30)
[2017-01-09 07:11] LABS: CALCIUM 9.7 mg/dL (8.4-10.2); CREATININE, serum 0.41 mg/dL (0.52-1.25); HEMATOCRIT 35.1 % (37.0-47.0); HEMOGLOBIN 11.2 g/dl (12.5-16.0); MEAN CORPUSCULAR HEMOGLOBIN 29 pg (27.0-31.0); POTASSIUM 3.8 mmol/L (3.4-5.0); WHITE BLOOD COUNT 23.6 K/mm3 (4.8-10.8)
[2017-01-09 07:12] LABS: ADD PATHOLOGY DIFF REVIEW NO
[2017-01-09 07:33] LABS: BAND 10 % (0-10); MYELOCYTE 1 % (0-0); NEUTROPHILS 31 % (42.0-75.2); PLATELET ESTIMATE NORMAL (NORMAL); TOTAL CELLS COUNTED 100
[2017-01-09 08:48] VITALS: BP 155/68; PULSE 86
[2017-01-09 10:58] LABS: PH 8 (5-8); SQUAMOUS EPITHELIAL None Seen /hpf; URINE APPEARANCE Clear; URINE BACTERIA None Seen /hpf; URINE BILIRUBIN Negative (NEGATIVE); URINE BLOOD Negative (NEGATIVE); URINE COLOR Straw; URINE GLUCOSE Negative (NEGATIVE); URINE KETONE Negative (NEGATIVE); URINE RBC 0-2 /hpf; URINE UROBILINOGEN Negative (NEGATIVE); URINE WBC 0-2 /hpf
[2017-01-09 11:07] VITALS: BP 144/65; PULSE 80
[2017-01-09 15:11] VITALS: BP 155/70; PULSE 78; TEMP 98
[2017-01-09 16:32] VITALS: BP 155/70; PULSE 78; TEMP 98
== END 2017-01-09 17:19 | disposition short-term general hospital (02) | DRG 871 ==
LOC: COL.ER 12:52 → ICU 15:14 → IMCU 15:14 → MEDICAL 15:14 → IMCU 01-03 00:09 → MEDICAL 01-03 18:30
PROVIDERS: Emergency Medicine; Family Medicine; Internal Medicine Cardiovascular Disease; Internal Medicine Pulmonary Disease
PROC: 0B968ZX Drainage of Right Lower Lobe Bronchus, Via Natural or Artificial Opening Endoscopic, Diagnostic (ICD-10-PCS; 2017-01-04)
PROC: 0B9B8ZX Drainage of Left Lower Lobe Bronchus, Via Natural or Artificial Opening Endoscopic, Diagnostic (ICD-10-PCS; 2017-01-04)
PROC: 0W993ZX Drainage of Right Pleural Cavity, Percutaneous Approach, Diagnostic (ICD-10-PCS; 2017-01-04)
PROC: 0B958ZX Drainage of Right Middle Lobe Bronchus, Via Natural or Artificial Opening Endoscopic, Diagnostic (ICD-10-PCS; principal; 2017-01-04 10:00)
DX: A41.9 Sepsis, unspecified organism (principal); J18.9 Pneumonia, unspecified organism; J90 Pleural effusion, not elsewhere classified; B35.4 Tinea corporis; I48.91 Unspecified atrial fibrillation; I34.0 Nonrheumatic mitral (valve) insufficiency; E21.3 Hyperparathyroidism, unspecified; E83.52 Hypercalcemia
CPT/HCPCS: 99223-AI; 99231-AI; 99232-AI; 99233-AI; 99239; J1160; J1644; J1650; J2185; J2704; J3370; J3480; J7030; J7050; J7614; Q9967

== ENCOUNTER → 2017-01-16 | Outpatient (REF) ==
[~2017-01-16] MED LIST changes: +B-121000 MCG PO; +CORDARONE200 MG/TAB PO; +FLAX OIL1000 MG PO; +LASIX 20MG TABL20 MG PO; +LEVAQUIN 750MG750 M1 PO; +NATURAL MAGNES200 MG PO; +NORCO 325 MG-51 TAB PO; +NYAMYC100000 U/G TP; +ZEBETA 5MG5 MG PO; +ZYLOPRIM 300MG300 MG PO
== END ==
LOC: ZAIV 06:20
DX: Z09 Encounter for follow-up examination after completed treatment for conditions other than malignant neoplasm (principal)

== ENCOUNTER 2017-02-14 07:30 | Day surgery (SDC) | payer MEDICARE, OTHER ==
[~2017-02-14] VITALS: Ht 162.6 cm; Wt 74.4 kg
[~2017-02-14 07:30] MED LIST changes: -CORDARONE200 MG/TAB PO; -LASIX 20MG TABL20 MG PO; -NORCO 325 MG-51 TAB PO; -ZEBETA 5MG5 MG PO; -ZYLOPRIM 300MG300 MG PO
[2017-02-14] MEDS ORDERED: CORDARONE200 MG/TAB PO (08:18)
[2017-02-14] MEDS ORDERED: ZEBETA 5MG5 MG PO (08:18)
[2017-02-14] MEDS ORDERED: ZYLOPRIM 300MG300 MG PO (08:20)
[2017-02-14] MEDS ORDERED: LASIX 20MG TABL20 MG PO (08:20)
[2017-02-14 08:23] VITALS: BP 127/69; PULSE 61; TEMP 97.3
[2017-02-14 11:55] VITALS: BP 123/62; PULSE 65; TEMP 97.7
[2017-02-14 12:10] VITALS: BP 129/62; PULSE 62
[2017-02-14] MEDS ORDERED: COLACE 100100 MG/CAP PO (12:16)
[2017-02-14] MEDS ORDERED: NORCO 325 MG-51 TAB PO (12:16)
[2017-02-14 12:25] VITALS: BP 140/73; PULSE 61
== END 2017-02-14 12:50 | disposition home or self-care (01) ==
LOC: SDCO 07:30
DX: C91.10 Chronic lymphocytic leukemia of B-cell type not having achieved remission (principal); R05 Cough; I10 Essential (primary) hypertension; I50.9 Heart failure, unspecified; Z87.442 Personal history of urinary calculi; E21.3 Hyperparathyroidism, unspecified; I47.1 Supraventricular tachycardia; I34.0 Nonrheumatic mitral (valve) insufficiency; I48.91 Unspecified atrial fibrillation
CPT/HCPCS: C1788; J0690; J1644; J2405; J2704; J7120

== ENCOUNTER → 2017-08-15 | Outpatient (CLI) | payer MEDICARE, OTHER ==
[~2017-08-15] MED LIST changes: +CORDARONE200 MG/TAB PO; +LASIX 20MG TABL20 MG PO; +NORCO 325 MG-51 TAB PO; +ZEBETA 5MG5 MG PO; +ZYLOPRIM 300MG300 MG PO
== END ==
LOC: COL.RAD 09:44
DX: C91.10 Chronic lymphocytic leukemia of B-cell type not having achieved remission (principal); J98.4 Other disorders of lung
CPT/HCPCS: Q9967

== ENCOUNTER 2018-05-05 05:52 | Emergency (ER) | payer MEDICARE, OTHER ==
[~2018-05-05] VITALS: Ht 162.6 cm; Wt 75.0 kg
[2018-05-05 05:55] VITALS: TEMP 98.3
[2018-05-05] MEDS ORDERED: ZEBETA 5MG5 MG PO (06:14)
[2018-05-05] MEDS ORDERED: PACERONE100 MG PO (06:14)
[2018-05-05] MEDS ORDERED: B-12 500 MCG PO (06:15)
[2018-05-05] MEDS ORDERED: LASIX 20MG TABL20 MG PO (06:15)
[2018-05-05 06:20] LABS: BASO # 0.1 (0.0-0.2); EOS # 0.3 (0.0-0.7); EOS % 5.3 % (0-4.0); GRAN # 3.4 (1.4-6.5); GRAN % 65.8 % (42.2-75.2); HEMATOCRIT 41.6 % (37.0-47.0); HEMOGLOBIN 13.8 g/dl (12.5-16.0); LYMPH # 0.8 (1.2-3.4); LYMPH % 15.8 % (20.0-51.0); MEAN CELL VOLUME 93 fl (80.0-100.0); MEAN CORPUSCULAR HEMOGLOBIN 31 pg (27.0-31.0); MEAN CORPUSCULAR HGB CONC 33 g/dl (33.0-37.0); MEAN PLATELET VOLUME 13.6 fl (7.4-10.4); MONO # 0.6 (0.1-0.6); MONO % 11.9 % (1.7-9.3); PLATELET COUNT 121 K/mm3 (130-400); RED BLOOD COUNT 4.47 M/mm3 (4.10-5.30)
[2018-05-05 06:26] LABS: ALANINE AMINOTRANSFERASE 26 U/L (9-52); ALBUMIN 4.1 gm/dL (3.5-5.0); ALKALINE PHOSPHATASE 79 U/L (50-136); ANION GAP 10 mmol/L (7-16); AST,SGOT 24 U/L (15-37); BILIRUBIN,TOTAL 0.6 mg/dL (0.0-1.0); BLOOD UREA NITROGEN 18 mg/dL (7-17); CALCIUM 11.1 mg/dL (8.4-10.2); CARBON DIOXIDE 25 mmol/L (22-30); CHLORIDE 106 mmol/L (98-107); CREATININE, serum 0.81 mg/dL (0.52-1.25); GLUCOSE 102 mg/dL (74-106); LIPASE 61 U/L (23-300); POTASSIUM 3.7 mmol/L (3.4-5.0); SODIUM 141 mmol/L (137-145); TOTAL PROTEIN 6.6 gm/dL (6.4-8.2)
[2018-05-05 06:38] LABS: TROPONIN-I < 0.012 ng/mL (0.000-0.034)
[2018-05-05 07:18] LABS: COLLECTION METHOD CLEAN CATCH
[2018-05-05 07:23] LABS: MUCOUS Present /lpf; PH 5 (5-8); SQUAMOUS EPITHELIAL 0-2 /hpf; URINE APPEARANCE Clear; URINE BACTERIA None Seen /hpf; URINE BILIRUBIN Negative (NEGATIVE); URINE BLOOD Negative (NEGATIVE); URINE COLOR Yellow; URINE GLUCOSE Negative (NEGATIVE); URINE KETONE Negative (NEGATIVE); URINE LEUKOCYTE ESTERASE Trace (NEGATIVE); URINE NITRATE Negative (NEGATIVE); URINE PROTEIN(semi-quant) Negative (NEGATIVE); URINE RBC 0-2 /hpf; URINE UROBILINOGEN Negative (NEGATIVE)
[2018-05-05 12:06] VITALS: BP 142/73; PULSE 54
== END 2018-05-05 12:06 | disposition home or self-care (01) ==
LOC: COL.ER 05:52
PROVIDERS: Emergency Medicine
DX: R10.13 Epigastric pain (principal); E83.52 Hypercalcemia
CPT/HCPCS: C9113; J2405; J3010; J7030; Q9967

== ENCOUNTER → 2018-09-26 | Outpatient (CLI) | payer MEDICARE, OTHER ==
[~2018-09-26] MED LIST changes: +B-12 500 MCG PO; +PACERONE100 MG PO
== END ==
LOC: COL.RAD 09:27
DX: C91.11 Chronic lymphocytic leukemia of B-cell type in remission (principal); I51.7 Cardiomegaly; E07.9 Disorder of thyroid, unspecified; Z95.828 Presence of other vascular implants and grafts; Z87.09 Personal history of other diseases of the respiratory system
CPT/HCPCS: Q9967

== ENCOUNTER → 2018-10-08 | Outpatient (CLI) | payer MEDICARE, OTHER | LOC: COL.RAD 07:04 | DX: C91.11 Chronic lymphocytic leukemia of B-cell type in remission (principal); E04.2 Nontoxic multinodular goiter ==

== ENCOUNTER → 2019-04-16 | Outpatient (CLI) | payer MEDICARE, OTHER | LOC: COL.RAD 09:32 | DX: E04.1 Nontoxic single thyroid nodule (principal) ==

== ENCOUNTER → 2019-08-21 | Outpatient (CLI) | payer MEDICARE, OTHER | LOC: MC.RAD 12:55 | DX: N64.4 Mastodynia (principal); Z85.3 Personal history of malignant neoplasm of breast; Z95.9 Presence of cardiac and vascular implant and graft, unspecified | CPT/HCPCS: G0279 ==

== ENCOUNTER → 2021-05-10 | Outpatient (CLI) | payer MEDICARE, OTHER | LOC: COL.RAD 04-30 10:30 | DX: E21.0 Primary hyperparathyroidism (principal) | CPT/HCPCS: A9500 ==

== ENCOUNTER → 2021-10-20 | Outpatient (CLI) | payer MEDICARE, OTHER ==
[~2021-10-20] VITALS: Ht 162.6 cm; Wt 70.4 kg
[~2021-10-20] MED LIST changes: +STOOL SOFTENER100 M2 PO
[2021-10-20 09:21] VITALS: BP 154/94; PULSE 56; TEMP 97.6
[2021-10-20 10:35] VITALS: BP 156/79; PULSE 58
== END ==
LOC: COL.RAD 09:00
DX: C91.12 Chronic lymphocytic leukemia of B-cell type in relapse (principal)
CPT/HCPCS: 32106

== ENCOUNTER → 2023-01-06 | Outpatient (CLI) | payer MEDICARE, OTHER | LOC: COL.RAD 09:17 | DX: Z08 Encounter for follow-up examination after completed treatment for malignant neoplasm (principal); I51.7 Cardiomegaly; R59.0 Localized enlarged lymph nodes; Z85.72 Personal history of non-Hodgkin lymphomas | CPT/HCPCS: Q9967 ==